=== PATIENT | female | born 1960 | race Caucasian/White ===

== ENCOUNTER 2017-10-25 10:56 | Emergency (ER) | payer MEDICARE ==
[2017-10-25] MEDS ORDERED: Sodium Chloride 0.9% 10 ML Syringe FLUSH PRN (11:22)
--- NOTE | 2017-10-25 11:22 | EDM.PDOC ---
ED HPI GENERAL MEDICAL PROBLEM - General Chief Complaint: General Stated Complaint: weakness, nausea Time Seen by Provider: 10/25/17 11:12 Source of Information: Reports: Patient History Limitations: Reports: No Limitations - History of Present Illness INITIAL COMMENTS - FREE TEXT/NARRATIVE: Patient is brought into the emergency department today for body aches, tingling , and muscle pain. Patient was in the clinic yesterday and had prolia injection for her osteoarthritis. This was the first injection she's had of this before. She understands the side effects can include body aches tingling or muscle pain as stated above but she just wanted to get checked out to ensure that that is the side effects of the medication and not something else. Patient did have 3 aneurysms many years ago and states that she developed a seizure disorder after that. This morning when they were out and about patient became lightheaded and dizzy and felt like she may have a seizure along with the body aches tingling muscle pain. Patient is currently on a regimen to control her seizures and has not had a seizure in many years. Patient denies having the feeling that his seizures and it any longer. Patient denies any fever nausea vomiting diarrhea. Onset: Sudden Severity: Moderate - Related Data Allergies Allergy/AdvReac Type Severity Reaction Status Date / Time No Known Allergies Allergy Verified 06/12/17 09:02 Home Meds: Home Meds Albuterol [Proair HFA] 2 puff PO Q4H PRN 01/05/15 [History] carBAMazepine [TEGretol] 400 mg PO ASDIRECTED 01/05/15 [History] Ascorbic Acid [Vitamin C] 500 mg PO DAILY 08/06/16 [History] Cholecalciferol (Vitamin D3) [Vitamin D3] 1,000 mg PO DAILY 08/06/16 [History] Multivitamin [Multivitamins] 1 tab PO DAILY 08/06/16 [History] Phenytoin Sodium Extended [Dilantin] 300 mg PO BEDTIME 08/06/16 [History] Denosumab [Prolia] 60 mg SQ ASDIRECTED 06/10/17 [History] Docusate Sodium [Colace] 100 mg PO DAILY 06/10/17 [History] Past Medical History Other HEENT History: HX OF ANEURYSM IN HEAD Cardiovascular History: Reports: None Respiratory History: Reports: COPD, Other (See Below) Other Respiratory History: centrilobular emphysema Gastrointestinal History: Reports: Chronic Constipation, Colon Polyp, Other ( See Below) Other Gastrointestinal History: fm hx colon ca. hematochezia Genitourinary History: Reports: Other (See Below) Other Genitourinary History: fibrocystic breast Musculoskeletal History: Reports: Other (See Below) Other Musculoskeletal History: kyphosis Neurological History: Reports: Cerebral Aneurysms, Seizure, Other (See Below) Other Neuro History: mild cognitive impairment Psychiatric History: Reports: None Endocrine/Metabolic History: Reports: Osteoporosis, Vitamin D Deficiency, Other (See Below) Other Endocrine/Metabolic History: underweight Hematologic History: Reports: None Immunologic History: Reports: None Oncologic (Cancer) History: Reports: None Dermatologic History: Reports: None - Past Surgical History Head Surgeries/Procedures: Reports: None HEENT Surgical History: Reports: None Cardiovascular Surgical History: Reports: None GI Surgical History: Reports: Colonoscopy Female Surgical History: Reports: Tubal Ligation Neurological Surgical History: Reports: Other (See Below) Other Neurological Surgeries/Procedures: IR Coiling cerebral aneurysm Musculoskeletal Surgical History: Reports: None Oncologic Surgical History: Reports: None Social & Family History - Tobacco Use Smoking Status *Q: Former Smoker Years of Tobacco use: 40 Packs/Tins Daily: 0.5 Used Tobacco, but Quit: Yes Month/Year Tobacco Last Used: March 2017 Second Hand Smoke Exposure: Yes - Alcohol Use Days Per Week of Alcohol Use: 1 - Recreational Drug Use Recreational Drug Use: No Drug Use in Last 12 Months: No ED ROS GENERAL - Review of Systems Review Of Systems: See Below Constitutional: Denies: Fever, Chills, Malaise, Weakness, Fatigue, Night Sweats HEENT: Reports: No Symptoms Respiratory: Reports: No Symptoms Cardiovascular: Reports: No Symptoms Endocrine: Reports: No Symptoms GI/Abdominal: Reports: No Symptoms Musculoskeletal: Reports: Joint Pain, Muscle Pain, Muscle Stiffness Neurological: Reports: Tingling, Weakness Psychiatric: Reports: No Symptoms Hematologic/Lymphatic: Reports: No Symptoms Immunologic: Reports: No Symptoms ED EXAM, GENERAL - Physical Exam Exam: See Below Exam Limited By: No Limitations General Appearance: Alert, WD/WN, No Apparent Distress Respiratory/Chest: No Respiratory Distress, Lungs Clear, Normal Breath Sounds, No Accessory Muscle Use, Chest Non-Tender Cardiovascular: Normal Peripheral Pulses, Regular Rate, Rhythm, No Edema GI/Abdominal: Normal Bowel Sounds, Soft, Non-Tender Extremities: Normal Inspection, Normal Range of Motion Neurological: Alert, Oriented Skin Exam: Warm, Dry, Intact, Normal Color Course - Vital Signs Last Recorded V/S: Last Vital Signs Temp 36.2 C 10/25/17 11:08 Pulse 65 10/25/17 11:08 Resp 16 10/25/17 11:08 BP 121/91 H 10/25/17 11:08 Pulse Ox 100 10/25/17 11:08 - Orders/Labs/Meds Orders: Active Orders 24 hr Category Date Time Status Sodium Chloride 0.9% [Normal Saline] 1,000 ml Med 10/25/17 11:30 Ordered IV ASDIRECTED Peripheral IV Insertion Adult [OM.PC] Routine Oth 10/25/17 11:22 Ordered Medication Orders Sodium Chloride (Normal Saline) 1,000 mls @ 1,000 mls/hr IV ASDIRECTED BRINA Labs: Laboratory Tests 10/25/17 10/25/17 Range/Units 11:25 11:25 WBC 5.9 (4.0-10.0) x10^3/uL RBC 3.88 L (4.00-5.50) x10^6/uL Hgb 12.3 (12.0-16.0) g/dL Hct 38.2 (33.0-47.0) % MCV 98.5 H (78.0-93.0) fL MCH 31.7 (26.0-32.0) pg MCHC 32.2 (32.0-36.0) g/dL RDW Coeff of Salazar 12.1 (10.0-15.0) % Plt Count 278 (130-400) x10^3/uL Neut % (Auto) 56.5 (50.0-80.0) % Lymph % (Auto) 26.3 (25.0-50.0) % [place] % (Auto) 10.8 (2.0-11.0) % Eos % (Auto) 5.0 H (0.0-4.0) % Baso % (Auto) 1.4 H (0.2-1.2) % Sodium 134 L (136-145) mmol/L Potassium 3.9 (3.5-5.1) mmol/L Chloride 104 (98-107) mmol/L Carbon Dioxide 27 (21-32) mmol/L BUN 22 H (7-18) mg/dL Creatinine 1.2 H (0.55-1.02) mg/dL Est Cr Clr Drug Dosing 37.93 mL/min Estimated GFR (MDRD) 47 Glucose 104 (74-106) mg/dL Calcium 8.4 L (8.5-10.1) mg/dL Corrected Calcium 8.80 (8.5-10.1) mg/dL Total Bilirubin 0.2 (0.2-1.0) mg/dL AST 31 (15-37) U/L ALT 46 (14-59) U/L Alkaline Phosphatase 105 (46-116) U/L Total Protein 6.8 (6.4-8.2) g/dL Albumin 3.5 (3.4-5.0) g/dL Globulin 3.3 Albumin/Globulin Ratio 1.06 Meds: Medications Generic Name Dose Route Start Last Admin Trade Name Freq PRN Reason Stop Dose Admin Sodium Chloride 1,000 mls @ 1,000 mls/hr 10/25/17 11:30 Normal Saline IV ASDIRECTED BRINA Discontinued Medications Generic Name Dose Route Start Last Admin Trade Name Freq PRN Reason Stop Dose Admin Lactated Ringer's 1,000 mls @ 1,000 mls/min 10/25/17 11:30 10/25/17 11:36 Ringers, Lactated IV 10/25/17 11:31 1,000 mls/min .BOLUS ONE Administration Sodium Chloride 10 ml 10/25/17 11:22 Saline Flush FLUSH ASDIRECTED PRN Keep Vein Open Departure - Departure Time of Disposition: 12:25 Disposition: Home, Self-Care 01 Condition: Good Clinical Impression: Dehydration, Medication side effect - Discharge Information Instructions: Dehydration, Adult, [id number] Forms: ED Department Discharge Additional Instructions: 1. Increase her water intake 2. Follow-up in the clinic next week if symptoms continue 3. If you become dizzy or lightheaded make sure you rise from a seated position slowly 4. Activity and diet as tolerated - Problem List Review Problem List Initiated/Reviewed/Updated: Yes - My Orders Last 24 Hours: My Active Orders 10/25/17 11:22 Peripheral IV Insertion Adult [OM.PC] Routine 10/25/17 11:30 Sodium Chloride 0.9% [Normal Saline] 1,000 ml IV ASDIRECTED - Assessment/Plan Last 24 Hours: My Active Orders 10/25/17 11:22 Peripheral IV Insertion Adult [OM.PC] Routine 10/25/17 11:30 Sodium Chloride 0.9% [Normal Saline] 1,000 ml IV ASDIRECTED Assessment:: 1. Medication side effect Plan: 1. Will completed labs in the ER today. Results reviewed with the pt. 2. Education provided regarding side effects of porlia 3. Pt is to follow up next week in the clinic to discuss further options if the side effects continue 4. IV is inserted and a 1L bolus given to help reduce the side effects
[2017-10-25] MEDS ORDERED: Sodium Chloride 0.9% 1,000 ML IV SCH (11:30)
[2017-10-25] MEDS ORDERED: Lactated Ringers 1,000 ML IV ONE (11:30)
[2017-10-25 12:41] VITALS: BP 122/74
== END 2017-10-25 12:52 | disposition home or self-care (01) ==
LOC: VM.ED 10:56
DX: M79.1 Myalgia (principal); T50.995A Adverse effect of other drugs, medicaments and biological substances, initial encounter; E86.0 Dehydration; G40.909 Epilepsy, unspecified, not intractable, without status epilepticus; J44.9 Chronic obstructive pulmonary disease, unspecified; Z87.891 Personal history of nicotine dependence; Z79.899 Other long term (current) drug therapy
CPT/HCPCS: 36415; 80053; 85025; 96360; 99284; J7120

== ENCOUNTER 2017-10-29 18:31 | Emergency (ER) | payer MEDICARE ==
[2017-10-29 18:57] VITALS: BP 112/71
[2017-10-29] MEDS ORDERED: Lactated Ringers 1,000 ML IV ONE (18:58)
[2017-10-29] MEDS ORDERED: Sodium Chloride 0.9% 10 ML Syringe FLUSH PRN (18:58)
--- NOTE | 2017-10-29 20:20 | EDM.PDOCBH ---
ED HPI GENERAL MEDICAL PROBLEM - General Chief Complaint: Behavioral/Psych Stated Complaint: thinks she has "feces" floating around her body Time Seen by Provider: 10/29/17 18:47 Source of Information: Reports: Patient History Limitations: Reports: No Limitations - History of Present Illness INITIAL COMMENTS - FREE TEXT/NARRATIVE: Patient was seen in the clinic for constipation. She was given an enema with good results. However today she feels like she still has stool in her abdomen and is blocked. She also states she thinks she has "feces" floating around her body. I did discuss that that is not medically possible and discussed what would happen if she had a bowel obstruction, or perforation. She has no other complaints today and is quite anxious. Seen by Dr. Lieberman yesterday. Onset: Gradual Location: Reports: Abdomen Quality: Reports: Ache Severity: Mild Improves with: Reports: None Worsens with: Reports: None Associated Symptoms: Reports: No Other Symptoms - Related Data Allergies Allergy/AdvReac Type Severity Reaction Status Date / Time No Known Allergies Allergy Verified 10/29/17 19:00 Home Meds: Home Meds Albuterol [Proair HFA] 2 puff PO Q4H PRN 01/05/15 [History] carBAMazepine [TEGretol] 400 mg PO ASDIRECTED 01/05/15 [History] Ascorbic Acid [Vitamin C] 500 mg PO DAILY 08/06/16 [History] Cholecalciferol (Vitamin D3) [Vitamin D3] 1,000 mg PO DAILY 08/06/16 [History] Multivitamin [Multivitamins] 1 tab PO DAILY 08/06/16 [History] Phenytoin Sodium Extended [Dilantin] 300 mg PO BEDTIME 08/06/16 [History] Denosumab [Prolia] 60 mg SQ ASDIRECTED 06/10/17 [History] Docusate Sodium [Colace] 100 mg PO DAILY 06/10/17 [History] Past Medical History Other HEENT History: HX OF ANEURYSM IN HEAD Cardiovascular History: Reports: None Respiratory History: Reports: COPD, Other (See Below) Other Respiratory History: centrilobular emphysema Gastrointestinal History: Reports: Chronic Constipation, Colon Polyp, Other ( See Below) Other Gastrointestinal History: fm hx colon ca. hematochezia Genitourinary History: Reports: Other (See Below) Other Genitourinary History: fibrocystic breast Musculoskeletal History: Reports: Other (See Below) Other Musculoskeletal History: kyphosis Neurological History: Reports: Cerebral Aneurysms, Seizure, Other (See Below) Other Neuro History: mild cognitive impairment Psychiatric History: Reports: None Endocrine/Metabolic History: Reports: Osteoporosis, Vitamin D Deficiency, Other (See Below) Other Endocrine/Metabolic History: underweight Hematologic History: Reports: None Immunologic History: Reports: None Oncologic (Cancer) History: Reports: None Dermatologic History: Reports: None - Past Surgical History Head Surgeries/Procedures: Reports: None HEENT Surgical History: Reports: None Cardiovascular Surgical History: Reports: None GI Surgical History: Reports: Colonoscopy Female Surgical History: Reports: Tubal Ligation Neurological Surgical History: Reports: Other (See Below) Other Neurological Surgeries/Procedures: IR Coiling cerebral aneurysm Musculoskeletal Surgical History: Reports: None Oncologic Surgical History: Reports: None Social & Family History - Tobacco Use Smoking Status *Q: Former Smoker Years of Tobacco use: 40 Packs/Tins Daily: 0.5 Used Tobacco, but Quit: Yes Month/Year Tobacco Last Used: march 2017 Second Hand Smoke Exposure: Yes - Alcohol Use Days Per Week of Alcohol Use: 1 - Recreational Drug Use Recreational Drug Use: No Drug Use in Last 12 Months: No ED ROS GENERAL - Review of Systems Review Of Systems: See Below Constitutional: Reports: No Symptoms HEENT: Reports: No Symptoms Respiratory: Reports: No Symptoms Cardiovascular: Reports: No Symptoms Endocrine: Reports: No Symptoms GI/Abdominal: Reports: Abdominal Pain : Reports: No Symptoms Musculoskeletal: Reports: No Symptoms Skin: Reports: No Symptoms Neurological: Reports: No Symptoms Psychiatric: Reports: Agitation, Anxiety Hematologic/Lymphatic: Reports: No Symptoms Immunologic: Reports: No Symptoms ED EXAM, BEHAVIORAL HEALTH - Physical Exam Exam: See Below Exam Limited By: No Limitations General Appearance: Anxious Eye Exam: Bilateral Eye: EOMI, Normal Inspection, PERRL Ears: Normal TMs Respiratory/Chest: No Respiratory Distress, Lungs Clear, Normal Breath Sounds, No Accessory Muscle Use, Chest Non-Tender Cardiovascular: Normal Peripheral Pulses, Regular Rate, Rhythm, No Edema, No Gallop, No JVD, No Murmur, No Rub GI/Abdominal: Normal Bowel Sounds, Soft, Non-Tender, No Organomegaly, No Distention, No Abnormal Bruit, No Mass Back Exam: Normal Inspection, Full Range of Motion, NT Extremities: Normal Inspection, Normal Range of Motion, Non-Tender, Normal Capillary Refill, No Pedal Edema Neurological: Alert, Normal Mood/Affect, CN II-XII Intact, Normal Cognition, Normal Gait, Normal Reflexes, No Motor/Sensory Deficits, Oriented x 3 Psychiatric: Alert, Oriented, Agitated Skin Exam: Warm, Dry, Intact, Normal color COURSE, BEHAVIORAL HEALTH COMP - Course Vital Signs: Last Vital Signs Temp 36.2 C 10/29/17 18:35 Pulse 93 10/29/17 18:35 Resp 30 H 10/29/17 18:35 BP 112/71 10/29/17 18:35 Pulse Ox 100 10/29/17 18:35 Orders, Labs, Meds: Active Orders 24 hr Category Date Time Status Abdomen Pelvis wo Cont [CT] Stat Exams 10/29/17 18:50 Taken Saline Lock Insert [OM.PC] Routine Oth 10/29/17 18:58 Ordered Medications Discontinued Medications Generic Name Dose Route Start Last Admin Trade Name Jakobq PRN Reason Stop Dose Admin Chlorpromazine HCl 25 mg 10/29/17 18:51 Thorazine IM 10/29/17 18:52 ONETIME ONE Chlorpromazine HCl 25 mg/ 51 mls @ 100 mls/hr 10/29/17 18:58 Sodium Chloride IV 10/29/17 19:28 ONETIME ONE Lactated Ringer's 1,000 mls @ 999 mls/hr 10/29/17 18:58 Ringers, Lactated IV 10/29/17 19:58 .BOLUS ONE Sodium Chloride 10 ml 10/29/17 18:58 Saline Flush FLUSH ASDIRECTED PRN Keep Vein Open Re-Assessment/Re-Exam: CT of abdomen/pelvis negative for acute process. Some moderate stool and a 2 mm right kidney stone not in the ureter, bladder, or obstructing. Departure - Departure Time of Disposition: 20:10 Disposition: Home, Self-Care 01 Clinical Impression: Anxiety, Nephrolithiasis Constipation Qualifiers: Constipation type: unspecified constipation type Qualified Code(s): K59.00 - Constipation, unspecified - Discharge Information Instructions: Constipation, Adult, [id number], Kidney Stones, [id number] Referrals: Abigail Lieberman MD [Primary Care Provider] - Forms: ED Department Discharge Additional Instructions: Stay well hydrated to help flush the kidney stone. Continue to take stool softeners to reduce your stool burden. Follow up with your primary doctor as symptoms warrant. Please call us with any questions or concerns in the meantime. - Problem List & Annotations (1) Anxiety SNOMED Code(s): 24260529 Code(s): F41.9 - ANXIETY DISORDER, UNSPECIFIED Status: Acute Priority: Low (2) Constipation SNOMED Code(s): 14373674 Code(s): K59.00 - CONSTIPATION, UNSPECIFIED Status: Acute Priority: Low Qualifiers: Constipation type: unspecified constipation type Qualified Code(s): K59.00 - Constipation, unspecified (3) Nephrolithiasis SNOMED Code(s): 61681085 Code(s): N20.0 - CALCULUS OF KIDNEY Status: Acute Priority: Low - Problem List Review Problem List Initiated/Reviewed/Updated: Yes - My Orders Last 24 Hours: My Active Orders 10/29/17 18:50 Abdomen Pelvis wo Cont [CT] Stat 10/29/17 18:58 Saline Lock Insert [OM.PC] Routine - Assessment/Plan Last 24 Hours: My Active Orders 10/29/17 18:50 Abdomen Pelvis wo Cont [CT] Stat 10/29/17 18:58 Saline Lock Insert [OM.PC] Routine Assessment:: right renal stone constipation anxiety Plan: Stay well hydrated to help flush the kidney stone. Continue to take stool softeners to reduce your stool burden. Follow up with your primary doctor as symptoms warrant. Please call us with any questions or concerns in the meantime.
== END 2017-10-29 20:30 | disposition home or self-care (01) ==
LOC: VM.ED 18:31
DX: N20.0 Calculus of kidney (principal); K59.00 Constipation, unspecified; F41.9 Anxiety disorder, unspecified; Z87.891 Personal history of nicotine dependence; J44.9 Chronic obstructive pulmonary disease, unspecified; Z79.899 Other long term (current) drug therapy
CPT/HCPCS: 74176; 99283; 99284-GF

== ENCOUNTER 2024-04-15 11:05 | Emergency (ER) | payer MEDICARE ==
[2024-04-15] MEDS ORDERED: Sodium Chloride 0.9% 10 ML Syringe FLUSH PRN (11:21)
[2024-04-15 11:38] LABS: BASOPHILS PERCENT AUTO 0.1 % (0.2-1.2); HEMATOCRIT 42.9 % (33.0-47.0); HEMOGLOBIN 14.3 g/dL (12.0-16.0); IMMATURE GRAN ABSOLUTE AUTO 0.09 x10^3/uL (0.00-0.07); LYMPHOCYTES ABSOLUTE AUTO 0.6 x10^3/uL (1.0-4.8); LYMPHOCYTES PERCENT AUTO 6.4 % (25.0-50.0); MEAN CORPUSCULAR HEMOGLOBIN 32.5 pg (26.0-32.0); MEAN CORPUSCULAR HGB CONC 33.3 g/dL (32.0-36.0); MEAN CORPUSCULAR VOLUME 97.5 fL (78.0-93.0); MONOCYTES ABSOLUTE AUTO 0.7 x10^3/uL (0.0-0.8); MONOCYTES PERCENT AUTO 7.6 % (2.0-11.0); NEUTROPHILS ABSOLUTE AUTO 7.9 x10^3/uL (1.8-7.7); NEUTROPHILS PERCENT AUTO 84.9 % (50.0-80.0); PLATELET COUNT,PLT 279 x10^3/uL (130-400); WHITE BLOOD CELL COUNT,WBC 9.3 x10^3/uL (4.0-10.0)
[2024-04-15 11:47] VITALS: BP 136/81; PULSE 93
[2024-04-15 11:55] LABS: A/G RATIO 0.55; ALBUMIN 2.3 g/dL (3.4-5.0); ANION GAP 9.5 mmol/L (5-15); BILIRUBIN TOTAL 0.4 mg/dL (0.2-1.0); CALCIUM 8.9 mg/dL (8.5-10.1); CREATININE 0.9 mg/dL (0.55-1.02); EST CRCL DRUG DOSING (CG) 37.65 mL/min; POTASSIUM,K 4.5 mmol/L (3.5-5.1); PROTEIN TOTAL,TP 6.5 g/dL (6.4-8.2)
[2024-04-15 12:18] LABS: CORONAVIRUS COVID-19 NAA NEGATIVE (NEGATIVE); INFLUENZA A NAA NEGATIVE (NEGATIVE); INFLUENZA B NAA NEGATIVE (NEGATIVE); RESPIRATORY SYNCYTIAL VIR NAA NEGATIVE (NEGATIVE)
[2024-04-15] MEDS: Albuterol/Ipratropium 3.0-0.5 MG/3 ML Neb Soln NEB ONE (13:23)
[2024-04-15] MEDS: methylPREDNISolone Sodium Succinate 125 MG/2 ML SDV IVPUSH ONE (13:23)
[2024-04-15 13:27] LABS: BASE EXCESS ARTERIAL 7 mmol/L ((-2)-(+3)); BICARBONATE,ARTERIAL 31 mmol/L (21-28); PCO2 ARTERIAL 46 mmHG (35-48); PH,ARTERIAL 7.44 pH (7.35-7.45); PO2 ARTERIAL 71 mmHG (83-108)
== END 2024-04-15 14:30 | disposition home or self-care (01) ==
LOC: SUPCPDRO 11:05 → VM.ED 11:05
DX: J44.1 Chronic obstructive pulmonary disease with (acute) exacerbation (principal); Z79.899 Other long term (current) drug therapy
CPT/HCPCS: 0241U; 36600; 71046; 80053; 82803; 83605; 85025; 94640; 96374; 99284; 99285-25; J2919; J7620-GY